=== PATIENT | female | born 1975 | race Caucasian/White ===

== ENCOUNTER 2018-03-24 | Emergency (ER) | payer SELFPAY ==
[~2018-03-24] VITALS: Ht 157.5 cm; Wt 92.6 kg
[2018-03-24 00:07] VITALS: BP 151/72
[2018-03-24] MEDS: MORPHINE SULFATE 4 MG/ML SYR IVP ONE (01:27)
[2018-03-24] MEDS: ONDANSETRON 4 MG/2 ML VIAL IVP ONE (01:28)
[2018-03-24] MEDS: NACL 0.9% 1,000 ML IV ONE (01:29)
[2018-03-24 01:43] LABS: BASOPHILS % (AUTO) 0.6 % (0.0-2.0); EOSINOPHILS # (AUTO) 0.1 K/uL (0-0.4); EOSINOPHILS % (AUTO) 1.4 % (0.0-4.0); HEMATOCRIT 29.3 % (36-48); LYMPHOCYTES % (AUTO) 25.1 % (20.5-51.1); MEAN CORPUSCULAR HEMOGLOBIN 21 pg (27-31); MEAN CORPUSCULAR HGB CONC 31 g/dL (33-37); MONOCYTES # (AUTO) 0.6 K/uL (0.8-1.0); MONOCYTES % (AUTO) 8.1 % (1.7-9.3); NEUTROPHILS # (AUTO) 5.2 K/uL (1.8-7.7); NEUTROPHILS % (AUTO) 64.8 % (42.2-75.2); PLATELET COUNT (AUTO) 386 K/uL (140-450); RED BLOOD CELL COUNT(AUTO) 4.25 MIL/uL (4.20-5.40); RED CELL DISTRIBUTION WIDTH 17.3 % (11.6-13.7)
[2018-03-24 01:53] LABS: ANION GAP 6.9 (8-16); CARBON DIOXIDE 28.5 mmol/L (21-32); CREATININE 0.7 mg/dL (0.6-1.3); POTASSIUM 3.4 mmol/L (3.5-5.1)
[2018-03-24 02:00] LABS: ALBUMIN 3.1 g/dL (3.4-5.0); TOTAL BILIRUBIN 0.2 mg/dL (0.0-1.0)
[2018-03-24] MEDS: KETOROLAC 30 MG/ML VIAL IVP ONE (02:27)
[2018-03-24 03:57] VITALS: BP 106/64
== END 2018-03-24 03:58 | disposition home or self-care (01) ==
LOC: MED
DX: R10.11 Right upper quadrant pain (principal)
CPT/HCPCS: 36415; 74176; 76705; 80053; 81002; 81025; 83690; 85025; 96374; 96375; 99285; J1885; J2270; J2405; Q0092